=== PATIENT | male | born 1985 ===

== ENCOUNTER 2023-01-28 04:14 | Emergency (ER) | payer SELFPAY ==
[2023-01-28 04:25] VITALS: BP 130/93; BP 138/76; PULSE 80; PULSE 83; RESP 16; TEMP 36.6; O2SAT 100; O2SAT 97; BMI 31.2
--- NOTE | 2023-01-28 05:17 | ED.GENADULT ---
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, borderline diabetes not on any medication comes here for feeling of same discomfort in the throat which woke him up from the sleep no other rash no lip or tongue swelling no known allergic reactions to anything else patient also complaining of rash around the glans of the penis patient traveled from [place] by bus to [facility] yesterday no leg pain or shortness of breath no chest pain resolved does complain of pain when he urinates Related Data Previous Rx's Medication Instructions Recorded blood-glucose meter #1 ea 01/28/23 diphenhydramine HCl 25 mg capsule 50 mg PO TID PRN allergic reaction 01/28/23 (Benadryl) #30 caps metformin 500 mg tablet 500 mg PO BID #180 tabs 01/28/23 miconazole nitrate 2 % topical 1 spray topical BID #133 grams 01/28/23 spray powder (Lotrimin AF Powder) prednisone 20 mg tablet 40 mg PO DAILY #10 tabs 01/28/23 Allergies Allergy/AdvReac Type Severity Reaction Status Date / Time No Known Allergies Allergy Verified 01/28/23 05:30 Review of Systems Review of Systems: Yes all other systems are reviewed and are negative PMFSH Past Medical History Medical History Diabetes mellitus Social History Social History Alcohol intake: current Smoked in Last 30 Days: No Use of substances other than those prescribed or required for medical reasons: No Advance Directives: No Advance Directives Information Provided: Yes Physical Exam ED Vital Signs: Vital Signs - 24 hr 01/28/23 04:25 01/28/23 06:20 Temperature 97.9 F 97.6 F Pulse Rate 83 83 Respiratory Rate 16 18 Blood Pressure 130/93 H 128/85 Pulse Oximetry 97 96 Oxygen Delivery Method Room Air Room Air BMI result Body Mass Index 31.2 Appearance: Alert. Oriented X3. No acute distress. Eyes: PERRLA, No Nystagmus ENT: Pharynx normal. Oral Mucosa moist edema of the uvula lips and tongue normal no stridor breaux normal Neck: Normal inspection. Neck supple. CVS: Normal heart rate and rhythm. Pulses normal. Respiratory: No respiratory distress. Equal air entry bilateral, no wheezing/rales/rhonchi Abdomen: Soft and nontender. Bowel sounds are present, : Yeast infection with slight erythema of the glans+ Skin: Skin warm and dry. Normal skin color. Normal skin turgor. Extremities: No lower extremity edema. No calf tenderness Neuro: Oriented X 3. Medications Administered Discontinued Medications Generic Name Dose Route Start Last Admin Trade Name Freq PRN Reason Stop Dose Admin Diphenhydramine HCl 50 mg 01/28/23 05:30 01/28/23 05:38 Diphenhydramine Hcl 25 Mg Capsule PO 01/28/23 05:31 50 mg ONCE ONE Administration Fluconazole 150 mg 01/28/23 06:19 01/28/23 06:25 Fluconazole 150 Mg Tablet PO 01/28/23 06:20 150 mg ONCE ONE Administration Metformin HCl 500 mg 01/28/23 06:14 01/28/23 06:23 Metformin Hcl 500 Mg Tablet PO 01/28/23 06:15 500 mg ONCE ONE Administration Prednisone 60 mg 01/28/23 05:30 01/28/23 05:38 Prednisone 20 Mg Tablet PO 01/28/23 05:31 60 mg ONCE ONE Administration Medical Decision Making Medical Decision Making [facility] Narrative: Patient localized angioedema treat with Benadryl and prednisone also has elevated blood sugar with history of borderline diabetes. Will treat him with metformin. Advised to follow with PCP Lab Data [facility] Lab Attestation statement: I reviewed the patient's lab results. Labs: Lab Results 01/28/23 01/28/23 Range/Units 05:46 05:51 POC Glucose 268 H (60-115) mg/dL Urine Color Yellow Urine Appearance Clear Urine pH 5.5 (5.0-9.0) Ur Specific Ocate >= 1.030 H (1.005-1.025) Urine Protein Trace (Neg-Trace) mg/dL Urine Glucose (UA) >=1000 H (Negative) mg/dL Urine Ketones Trace (Negative) mg/dL Urine Blood Negative (Negative) Urine Nitrite Negative (Negative) Ur Leukocyte Esterase Negative (Negative) Urine RBC 0-2 (0-2) /HPF Urine WBC 0-5 (0-5) /HPF Ur Squamous Epith Cells 0-2 (0-2) /HPF Urine Bacteria None Seen (None Seen) Hyaline Casts 0-2 (0-2) /LPF Discharge Plan Discharge Clinical Impression: Angioedema, Diabetes mellitus, Candidal balanitis Patient Disposition: Home, Self-Care Instructions: Type 2 Diabetes in Adults: New Diagnosis (ED), Yeast Infection (ED), Angioedema (ED) Additional Instructions: You have localized angioedema of the uvula cause unknown possible antibiotic which were taking Take Benadryl as prescribed Prednisone as prescribed The prednisone will increase your blood sugar Start taking metformin 500 mg twice daily Drink plenty of fluids Report to the ER if worsening of the swelling or tongue or lip swelling Prescriptions: New diphenhydramine HCl [Benadryl] 25 mg capsule 50 mg PO TID PRN (Reason: allergic reaction) Qty: 30 0RF prednisone 20 mg tablet 40 mg PO DAILY Qty: 10 0RF metformin 500 mg tablet 500 mg PO BID Qty: 180 1RF miconazole nitrate [Lotrimin AF Powder] 2 % aerosol powder 1 spray topical BID Qty: 133 0RF (DME) blood-glucose meter Kit See Rx Instructions .Route Qty: 1 0RF Rx Instructions: As directed Interventions: ED Discharge Assessment Last Done: 01/28/23 06:33 Discharge Date/Time: 01/28/23 06:34
[2023-01-28] MEDS: predniSONE 20 MG TABLET 60 MG PO (05:38)
[2023-01-28] MEDS: diphenhydrAMINE HCL 25 MG CAPSULE 50 MG PO (05:38)
[2023-01-28 05:54] LABS: Appearance Urine Clear; Color Urine Yellow; Glucose Urine UA >=1000 mg/dL (Negative); Leukocyte Esterase Urine Negative (Negative); Nitrite Urine Negative (Negative); PH 5.5 (5.0-9.0); Specific Gravity - Urine >= 1.030 (1.005-1.025); UMIC TRIGGER UACC YES; Urine Blood Negative (Negative); Urine Ketones Trace mg/dL (Negative); Urine Protein Trace mg/dL (Neg-Trace)
[2023-01-28 05:55] LABS: Glucose, Whole Blood 268 mg/dL (60-115)
[2023-01-28 05:59] LABS: Bacteria Urine None Seen (None Seen); Hyaline Casts Urine 0-2 /LPF (0-2); RBC Urine 0-2 /HPF (0-2); Squamous Epithelial Cell Urine 0-2 /HPF (0-2); WBC Urine 0-5 /HPF (0-5)
[2023-01-28 06:20] VITALS: BP 128/85; PULSE 83; RESP 18; TEMP 36.4; O2SAT 96
[2023-01-28] MEDS: metFORMIN HCl 500 MG TABLET PO (06:23)
[2023-01-28] MEDS: Fluconazole 150 MG TABLET PO (06:25)
== END 2023-01-28 06:34 | disposition home or self-care (01) ==
PROVIDERS: Emergency Provider Internal Medicine
DX: R07.0 Pain in throat (principal); E11.9 Type 2 diabetes mellitus without complications; B37.42 Candidal balanitis; Z79.899 Other long term (current) drug therapy; Z79.84 Long term (current) use of oral hypoglycemic drugs; Z79.1 Long term (current) use of non-steroidal anti-inflammatories (NSAID)
CPT/HCPCS: 81001; 82947; 99283; 99284